=== PATIENT | male | born 1975 | race Caucasian/White ===

== ENCOUNTER 2018-02-19 20:25 | Emergency (ER) | payer MEDICAID, SELFPAY ==
[~2018-02-19] VITALS: Ht 190.5 cm; Wt 78.0 kg
[2018-02-19] MEDS ORDERED: DIPH,PERTUSS(ACELL),TET VAC/PF 0.5 ML IM-VACC ONE ×2 (20:30→20:55)
[2018-02-19] MEDS ORDERED: ACETAMINOPHEN 500 MG TABLET PO ONE (20:30)
[2018-02-19] MEDS ORDERED: ACETAMINOPHEN 500 MG TABLET ONE (20:54)
[2018-02-19] MEDS ORDERED: PLEASE ENTER HEIGHT AND WEIGHT MC SCH (21:00)
[2018-02-19 21:15] VITALS: BP 128/80
== END 2018-02-19 21:56 | disposition home or self-care (01) ==
LOC: ED 21:45
DX: S70.01XA Contusion of right hip, initial encounter (principal); F17.200 Nicotine dependence, unspecified, uncomplicated; V49.59XA Passenger injured in collision with other motor vehicles in traffic accident, initial encounter; Y93.89 Activity, other specified; Y92.89 Other specified places as the place of occurrence of the external cause; Y99.8 Other external cause status
CPT/HCPCS: 71045; 90471; 90715

== ENCOUNTER 2018-10-21 09:16 | Inpatient (IN) | payer MEDICAID, OTHER ==
[~2018-10-21] VITALS: Ht 193 cm; Wt 78.4 kg
--- NOTE | 2018-10-21 10:10 | NUR ---
FALL INTERN: PT IN U/S, WILL GO TO ROOM UPON COMPLETION OF EXAM.
--- NOTE | 2018-10-21 10:28 | NUR ---
PATIENT BROUGHT TO ROOM 10 VIA WHEELCHAIR, ASSUMED CARE OF PATIENT AT THIS TIME.
--- NOTE | 2018-10-21 10:29 | NUR ---
PATIENT PRESENTS TO ED TODAY FOR LEFT LOWER EXT PAIN, DENIES TRAUMA OR RECENT TRAVEL, AWAITING MD ORDERS, CALL LIGHT WITHIN [place] [facility] AT THIS TIME. Addendum: 10/21/18 at 1032 by TREVOR PATIENT DENIES CP/SOB.
[2018-10-21] MEDS ORDERED: HYDROcodone/APAP 5/325 TABLET ONE (10:34)
--- NOTE | 2018-10-21 10:36 | NUR ---
MEDICATION ADMINISTERED PER MD ORDER, PATIENT TO HAVE FAMILY/FRIEND DRIVE PATIENT HOME TODAY.
[2018-10-21] MEDS ORDERED: HYDROcodone/APAP 5/325 TABLET PO ONE (11:00)
--- NOTE | 2018-10-21 11:02 | NUR ---
RESULTS BACK, CHART UP FOR RECHECK.
--- NOTE | 2018-10-21 11:16 | NUR ---
AT BEDSIDE, PATIENT TO BE ADMITTED, IV ESTABLISHED, AWAITING PUMP FOR HEPARIN DRIP. VS UPDATED IN CHART, PATIENT SITTING IN [facility] SPEAKING ON CELL PHONE,
[2018-10-21 11:26] LABS: BASOPHILS # (AUTO) 0.05 x10^3/uL (0-0.1); BASOPHILS % (AUTO) 1 % (0-1); EOSINOPHILS # (AUTO) 0.14 x10^3/uL (0-0.4); EOSINOPHILS % (AUTO) 2 % (1-7); LYMPHOCYTES # (AUTO) 1.01 x10^3/uL (1-3.4); LYMPHOCYTES % (AUTO) 13 % (22-44); MD NO; MEAN CORPUSCULAR HGB CONC 33.2 g/dL (33.2-36.2); MEAN CORPUSCULAR VOLUME 87.3 fL (81-97); MEAN PLATELET VOLUME 10.1 fL (7.4-10.4); MONOCYTES # (AUTO) 1.17 x10^3/uL (0.2-0.8); MONOCYTES % (AUTO) 15 % (2-9); NEUTROPHILS # (AUTO) 5.45 x10^3/uL (1.8-6.8); NEUTROPHILS % (AUTO) 70 % (42-75); PLATELET COUNT 164 x10^3/uL (130-400); RED BLOOD COUNT 4.88 x10^6/uL (4.38-5.82); RED CELL DISTRIBUTION WIDTH 13.4 % (9.4-14.8)
[2018-10-21] MEDS ORDERED: SODIUM CHLORIDE FLUSH 10ML SYR IVF ONE (11:30)
[2018-10-21 11:35] LABS: INTERNATIONAL NORMALIZED RATIO 1.02 (0.93-1.1); PROTHROMBIN TIME 10.7 Seconds (9.6-11.5)
[2018-10-21 11:36] LABS: ALBUMIN 3.3 g/dL (3.4-5.0); ANION GAP 6 mmol/L (5-15); CALCIUM 8.7 mg/dL (8.5-10.1); CHLORIDE 105 mmol/L (98-107); CREATININE 0.85 mg/dL (0.7-1.3)
[2018-10-21] MEDS ORDERED: PLEASE ENTER HEIGHT AND WEIGHT MC SCH (11:45)
--- NOTE | 2018-10-21 11:55 | NUR ---
[place] JUST LEFT PATIENT BEDSIDE, REPORT TO [place] [facility]. AWAITING TRANSPORT.
[2018-10-21] MEDS ORDERED: hydrALAzine 20 MG/ML, 1ML IVPush PRN (12:00)
[2018-10-21] MEDS ORDERED: morphine SULFATE 10 MG/ML, 1ML IVPush PRN (12:00)
[2018-10-21] MEDS ORDERED: HEPARIN 5,000 UNITS/ML, 1ML IV ONE (12:00)
[2018-10-21] MEDS ORDERED: HEPARIN 5,000 UNITS/ML, 1ML IV PRN (12:00)
[2018-10-21] MEDS ORDERED: TEMAZEPAM 15 MG CAPSULE PO PRN (12:00)
[2018-10-21] MEDS ORDERED: HEPARIN 25,000 UNITS/500ML PMX 500 ML IV PRN (12:00)
[2018-10-21] MEDS ORDERED: ONDANSETRON 2MG/ML, 2ML IVPush PRN (12:00)
[2018-10-21] MEDS ORDERED: ACETAMINOPHEN 325 MG TABLET PO PRN (12:00)
--- NOTE | 2018-10-21 12:07 | NUR ---
PATIENT TRANSFERRED/ADMITTED TO HOSPITAL BED UPSTAIRS.
[2018-10-21 13:27] VITALS: BP 113/68
[2018-10-21] MEDS: NICOTINE 14MG/24 HR PATCH.TD24 TD SCH (13:46)
[2018-10-21] MEDS: ENOXAPARIN 80 MG/0.8 ML SQ SCH (13:47)
[2018-10-21] MEDS ORDERED: OMNIPAQUE 350 MG/ML, 75ML BOTTLE ONE (15:15)
[2018-10-21 19:32] VITALS: BP 125/73
[2018-10-22 02:00] VITALS: BP 114/73
[2018-10-22] MEDS: ENOXAPARIN 80 MG/0.8 ML SQ SCH ×2 (02:29→14:13)
[2018-10-22 07:03] VITALS: BP 109/66
[2018-10-22 14:00] VITALS: BP 119/74
[2018-10-22] MEDS: NICOTINE 14MG/24 HR PATCH.TD24 TD SCH (14:00)
[2018-10-22] MEDS: NICOTINE 7 MG/24 HR PATCH.TD24 TD SCH (14:13)
[2018-10-22 17:17] LABS: MICROSCOPIC NOT IND
[2018-10-22 17:21] LABS: CULTURE INDICATED? NO
[2018-10-22 19:42] VITALS: BP 123/78
[2018-10-23] MEDS: ENOXAPARIN 80 MG/0.8 ML SQ SCH ×2 (01:45→14:17)
[2018-10-23 01:46] VITALS: BP 136/78
[2018-10-23 06:25] VITALS: BP 133/73
[2018-10-23 12:07] VITALS: BP 110/73
[2018-10-23] MEDS: NICOTINE 7 MG/24 HR PATCH.TD24 TD SCH (14:17)
[2018-10-23] MEDS ORDERED: KETOROLAC 30 MG/1 ML IVPush PRN (15:00)
[2018-10-23 19:47] VITALS: BP 119/78
[2018-10-24 01:47] VITALS: BP 112/72
[2018-10-24] MEDS: ENOXAPARIN 80 MG/0.8 ML SQ SCH ×2 (02:34→14:41)
[2018-10-24 05:31] LABS: BASOPHILS # (AUTO) 0.08 x10^3/uL (0-0.1); BASOPHILS % (AUTO) 1 % (0-1); EOSINOPHILS # (AUTO) 0.25 x10^3/uL (0-0.4); EOSINOPHILS % (AUTO) 5 % (1-7); LYMPHOCYTES # (AUTO) 1.35 x10^3/uL (1-3.4); LYMPHOCYTES % (AUTO) 25 % (22-44); MD NO; MEAN CORPUSCULAR HEMOGLOBIN 28.9 pg (27.5-34.5); MEAN CORPUSCULAR HGB CONC 33.1 g/dL (33.2-36.2); MEAN CORPUSCULAR VOLUME 87.3 fL (81-97); MEAN PLATELET VOLUME 10.3 fL (7.4-10.4); MONOCYTES # (AUTO) 1.07 x10^3/uL (0.2-0.8); MONOCYTES % (AUTO) 20 % (2-9); NEUTROPHILS # (AUTO) 2.71 x10^3/uL (1.8-6.8); NEUTROPHILS % (AUTO) 50 % (42-75); PLATELET COUNT 173 x10^3/uL (130-400); RED BLOOD COUNT 4.51 x10^6/uL (4.38-5.82); RED CELL DISTRIBUTION WIDTH 13.4 % (9.4-14.8)
[2018-10-24 07:58] VITALS: BP 125/73
[2018-10-24] MEDS: KETOROLAC 30 MG/1 ML IVPush SCH ×2 (09:09→14:41)
[2018-10-24 13:48] VITALS: BP 124/82
[2018-10-24] MEDS ORDERED: RIVA20TA PO (13:51)
[2018-10-24] MEDS ORDERED: RIVA15TA PO (13:51)
[2018-10-24] MEDS ORDERED: NICO-485 TD (13:54)
[2018-10-24] MEDS: NICOTINE 7 MG/24 HR PATCH.TD24 TD SCH (14:41)
[2018-10-24] MEDS ORDERED: IBUP-1221 PO (16:01)
== END 2018-10-24 16:28 | disposition home or self-care (01) | DRG 299 ==
LOC: ED 10:49 → EDIP 11:14 → 3NE 12:09
PROVIDERS: ADMIT Internal Medicine; ATTEND Internal Medicine
DX: I82.412 Acute embolism and thrombosis of left femoral vein (principal); I26.99 Other pulmonary embolism without acute cor pulmonale; I82.432 Acute embolism and thrombosis of left popliteal vein; I82.442 Acute embolism and thrombosis of left tibial vein; I51.7 Cardiomegaly; Z80.42 Family history of malignant neoplasm of prostate; F17.210 Nicotine dependence, cigarettes, uncomplicated
CPT/HCPCS: 36415; 71275; 80048; 81003; 81240; 82040; 85025; 85300; 85303; 85306; 85520; 85610; 85613; 85670; 85705; 85730; 85732; 86147; 93005; 93306; 99285; G0378; J1650; J1885; Q9967

== ENCOUNTER 2018-11-28 11:11 | Emergency (ER) | payer MEDICAID ==
[~2018-11-28] VITALS: Ht 190.5 cm; Wt 79.1 kg
[2018-11-28 13:59] VITALS: BP 127/80
== END 2018-11-28 14:52 | disposition home or self-care (01) ==
LOC: ED 14:18
DX: I82.412 Acute embolism and thrombosis of left femoral vein (principal); I82.432 Acute embolism and thrombosis of left popliteal vein
CPT/HCPCS: 36415; 80053; 85025; 85610; 85730; 99284